=== PATIENT | female | born 1935 ===

== ENCOUNTER 2025-01-01 15:53 | Inpatient (IN) | payer OTHER, SELFPAY ==
[2024-12-28 21:17] VITALS: BP 208/101
[2024-12-28 23:52] VITALS: BP 221/75
--- NOTE | 2024-12-28 23:57 | ED.GENMED ---
History of Present Illness
General
Chief Complaint: Change in Mental Status
Source: patient
Exam Limitations: none
Time Seen by Provider: 12/28/24 23:37
Nursing documentation reviewed up to this point in time: agreed with
History of Present Illness
History of Present Illness:
Patient is a 89-year-old female past with history of dementia hypertension, niddm , renal cancer status post nephrectomy years ago cholecystectomy presents to the ER for evaluation. Daughter reports patient has had worsening confusion over the past
month. She is followed by a neurologist and is on Namenda for dementia and Seroquel as well. Daughter reports they recently moved her out of her apartment in [place] to an apartment locally in [place] however patient is refusing to move into
her apartment. Daughter reports she is think she wants to go home to [facility] where she was born to see her family. Daughter reports there is no more family in [facility] and they are having difficulty managing patient. They will have 24-hour care
for her eventually once she is in her apartment.
pt is awake alert ,aware she is in the hospital cooperative here.
Still she has do not really question is she is here
Phy Exam
General Physical Exam
General Presentation: no apparent distress
General age: appears stated age
General Skin: warm and dry
General Habitus: normal
General Mental: alert
General Hydration: appears well hydrated
Cardiovascular Exam
Cardiovascular Exam: regular rate/rhythm, no murmur and normal peripheral pulses
Pulmonary Exam
Pulmonary Exam: lungs clear and no respiratory distress
Neurological Exam
Neurological Exam: alert and oriented x3
Musculoskeletal Exam
Musculoskeletal Exam: full ROM
Skin Exam
Skin Exam: normal color and warm/dry
Psychiatric Exam
Psychiatric Exam: normal mood/affect
Course
Orders/Labs/Results
Orders:
Orders
12/28/24 23:55
IV Insert/Care/Rem.- Treatment PRN
Complete Blood Count/With Diff Urgent
Comprehensive Metabolic Panel Urgent
Urinalysis Reflex To Culture Urgent
Date Specimen was Collected: 12/29/24
Time Specimen was Collected: 01:04
12/28/24 23:56
Electrocardiogram (*1) Stat
Reason for Study: Abdominal Pain
EKG- Treatment ONCE
12/29/24
CT Head W/o Iv Contrast Urgent
Reason For Exam: change in ms
12/29/24 01:05
Urine Microscopic Reflex Cult Urgent
12/29/24 01:40
0.9% Sodium Chloride 500 ml [Nss] 500 ml IV BOLUS
Abnormal Lab Results
12/29/24 12/29/24
00:11 01:05
Hgb 11.5 L g/dL
(12.0-16.0)
Hct 35.5 L %
(37.0-47.0)
MCH 26.7 L pg
(27.0-31.0)
MCHC 32.4 L g/dL
(33.0-37.0)
Abs Immat Gran (auto) 0.1 H 10^3/uL
(0-0.05)
Absolute Monos (auto) 0.8 H 10^3/uL
(0.1-0.6)
Immature Gran % 1.7 H %
(0-0.5)
Monocytes % 11.7 H %
(1.7-9.3)
Chloride 108 H mmol/L
(98-107)
Carbon Dioxide 20 L mmol/L
(22-30)
Glucose 259 H mg/dl
(70-99)
Urine Bacteria (Reflex) Few A
(Negative)
Urine Glucose 4+ A
(Negative)
Urine Albumin (Reflex) 2+ A
(Neg - Trace)
12/29/24 00:11
12/29/24 00:11
Vital Signs
Initial and Last Documented VS:
Initial Vital Signs
Temp Pulse Resp BP Pulse Ox
98.0 F 95 16 208/101 99
12/28/24 21:17 12/28/24 21:17 12/28/24 21:17 12/28/24 21:17 12/28/24 21:17
Last Documented Vital Signs
Temp Pulse Resp BP Pulse Ox
98.0 F 95 16 208/101 99
12/28/24 21:17 12/28/24 21:17 12/28/24 21:17 12/28/24 21:17 12/29/24 00:00
MDM/Problems Addressed
Differential Diagnosis Includes:
Not limited to UTI electrolyte abnormality worsening dementia
MDM/Problems Addressed:
As documented patient is an 89-year-old female with past manage of hypertension dementia fso-skjnglg-xihovpqgb diabetes history of renal cancer brought by daughter. Daughter reports patient over the past 1 month has had change in mental status more
confused noncompliant taking her medicines argumentative. She has been eval by neurology in the past and is on Namenda and Seroquel however daughter reports patient's confusion has worsened. They have been having difficulty caring for her at home
and have a new apartment for her in place with plan of 24-hour aides in place as well however patient is noncompliant will not go to the apartment. They feel they cannot care for patient home at this time. Patient presents awake alert she wants to
go live in [facility] where she was born as per daughter. Daughter reports there is no family there and this is not realistic.
Patient is afebrile with a normal white count stable hemoglobin normal renal function elevated blood sugar 259. Fluids ordered urinalysis negative no acute findings on CAT scan.
*Radiology
Radiology exam reviewed: radiology read reviewed
*Pulse Oximetry
SaO2: 99
Oxygen Mode of Delivery: Room air
Patient hypoxic: no
*EKG
Interpreted by ED Provider?: Yes
Heart Rate: 82
Rate: normal
Rhythm: sinus
Ischemia: no ischemia
*Critical Care Note
Total Time (30-74mins, 75-104mins- exclusive of procedures): Not Applicable
ED Attending Note
-
Portions of this chart may have been created with voice recognition software.� Occasional wrong word or��sound alike� substitutions may have occurred due to the inherent limitations of voice recognition software.
Discharge Plan
Departure
Prescriptions:
No Action
Hydralazide
50 mg PO TID
Januvia
50 ml SC DAILY
Namenda
10 mg PO BID
losartan
100 mg PO DAILY
metoprolol tartrate
100 mg PO DAILY
pravastatin
20 mg PO DAILY
Referrals:
UNKNOWN - PT DOES,NOT KNOW [Family Provider]
Interventions
Interventions:
*Risk Screen - Suicide Last Done: 12/28/24 21:17
*General Assessment Last Done: 12/28/24 21:17
*Neglect/Abuse Screening Last Done: 12/28/24 21:17
*ED- Fall Risk Assessment Last Done: 12/28/24 21:17
*ED COVID-19 Vaccine History Last Done: 12/28/24 21:17
ED- Neurological Assessment Last Done: 12/29/24 00:14
Discharge Date and Time
Print Language: SYRIAC
[2024-12-29] VITALS (15 sets, daily range): BP systolic 132–236; BP diastolic 43–82; PULSE 87; O2SAT 95
[2024-12-29 00:46] LABS: ALT (SGPT) 18 U/L (0-35); AST (SGOT) 18 U/L (14-36); Albumin 4.0 g/dl (3.5-5.0); Alkaline Phosphatase 87 U/L (38-126); Blood Urea Nitrogen 15 mg/dl (7-17); Calcium 10.1 mg/dl (8.4-10.2); Carbon Dioxide 20 mmol/L (22-30); Chloride 108 mmol/L (98-107); Glucose 259 mg/dl (70-99); Potassium 4.1 mmol/L (3.5-5.1); Sodium 137 mmol/L (135-145); Total Protein 7.2 g/dl (6.3-8.2); eGFR > 60.00
[2024-12-29 00:47] LABS: Hematocrit 35.5 % (37.0-47.0); Hemoglobin 11.5 g/dL (12.0-16.0); Mean Corp Hgb Conc. 32.4 g/dL (33.0-37.0); Mean Corpuscular Volume 82.4 fL (81.0-99.0); Nucleated Red Blood Cells % 0 %; Platelet Count 213 10^3/uL (130-400); Red Cell Dist. Width 14.3 % (11.5-14.5)
[2024-12-29 01:16] LABS: Urine Character Clear (Clear)
[2024-12-29 01:38] LABS: Urine Red Blood Cell 0-2 /HPF (0-2); Urine Squamous Cell 0-2 /LPF (Few); Urine Urothelial Cell 0-2 /LPF (FEW)
[2024-12-29 01:39] LABS: Urine White Cell 0-2 /HPF (0-5)
[2024-12-29] MEDS: NSS 500 IV (03:17)
--- NOTE | 2024-12-29 03:44 | HPS.HSE ---
Family Physician
-
Family Physician: NOT KNOW UNKNOWN - PT DOES
Chief Complaint
-
Behavioral changes
History of Present Illness
This is a 89-year-old female with past medical history significant for hypertension, bux-yebdnmj-jggnyxssf diabetes, hyperlipidemia, dementia who presents to the emergency department with worsening behavioral changes over the last few weeks
according to daughter.
Patient has been on treatment for dementia for over 1 year now. However recently she has been having hallucinatory behavior and delusions. She is stating that she wants to return to her family home to be with her parents and siblings.
She is not more forgetful but she has been having trouble sleeping and has been combative when requested to take her medications. She says she takes them regularly but family believes she often misses doses.
She self denies any symptoms including headache, blurry vision double vision weakness numbness difficulty speaking memory loss
She denies dysuria frequency or urgency. She denies any flank pain. She denies any nausea or vomiting or diarrhea.
She was recently started on Seroquel by a neurologist. She has not had any improvement.
Family recently tried to move from a old apartment to a new apartment that does not require her to go up to 5 stairs however patient has been very very combative because of this change. She is attempting to return to her previous apartment or sleep
outside. She was brought to the emergency department because of this issues.
In the emergency department she was hypertensive to 200/100 with a pulse rate in the 90s. She is satting 100% on room air. She was afebrile. CT of her head was negative. ECG shows a normal sinus rhythm with right bundle branch otherwise
unremarkable. UA was negative. CBC was normal. Electrolytes BUN/creatinine were normal. Glucose was moderately elevated at 250.
Medical History
Past Medical History
Past Medical History: Reports Dementia, HTN, Hypercholesterolemia and NIDDM
Past Surgical History: Reports Other
Social History
Tobacco: Non-smoker
Alcohol: None
Drug: None
Personal:
Living: Alone
Employment: Retired
Family History
Family History: Not pertinent
Allergies / Home Medications
Allergies reflects when Allergies were last updated in [employer].
Home Medications with original date entered in [employer]
Allergy/Medication List:
Allergies
Allergy/AdvReac Type Severity Reaction Status Date / Time
No Known Allergies Allergy Verified 12/28/24 21:22
Home Medications
Hydralazide 50 mg PO TID 12/29/24
Januvia 50 ml SC DAILY 12/29/24
Namenda 10 mg PO BID 12/29/24
losartan 100 mg PO DAILY 12/29/24
metoprolol tartrate 100 mg PO DAILY 12/29/24
pravastatin 20 mg PO DAILY 12/29/24
Review of Systems
-
Unable to obtain full review of systems at this time due to: Dementia
History Source: Patient and Family
Constitutional: Reports No Symptoms
EENT: Reports No Symptoms
Respiratory: Reports No Symptoms
Cardiac: Reports No Symptoms
Abdomen/GI: Reports No Symptoms
: Reports No Symptoms
Musculoskeletal: Reports No Symptoms
Skin: Reports No Symptoms
Neurological: Reports No Symptoms
Endocrine: Reports No Symptoms
Hematologic/Lymphatic: Reports No Symptoms
Psych: Reports Dementia and Audio or Visual Hallucinations
Physical Exam
Vital Signs
Vital Signs
Temp Pulse Resp BP Pulse Ox
98.0 F 95 16 208/101 99
12/28/24 21:17 12/28/24 21:17 12/28/24 21:17 12/28/24 21:17 12/29/24 00:00
Physical Exam
General: Well Developed, Well Nourished and No Apparent Distress
HEENT: NormoCephalic, Moist mucous membranes and Atraumatic
Respiratory: Clear
Cardiac: S1/S2 and Regular Rhythm; No Murmur or Rub
GI: Soft, Non Tender, Non Distended and Normal Bowel Sounds; No Organomegaly
Rectal: Deferred by Provider
Musculoskeletal: No Clubbing, No Cyanosis and No Edema
Skin: No Rash
Neuro: AO x 3 (She is oriented to person, she knows she is in the hospital, she knows the year and the month) and Nonfocal/grossly intact
Laboratory Results
-
12/29/24 00:11
12/29/24 00:11
Laboratory Results
Total Bilirubin 0.7 mg/dl (0.2-1.3) 12/29/24 00:11
AST 18 U/L (14-36) 12/29/24 00:11
ALT 18 U/L (0-35) 12/29/24 00:11
Alkaline Phosphatase 87 U/L (38-126) 12/29/24 00:11
Data Reviewed
-
CT Scan: Report Reviewed by me
Medical Tests (Nuc Med, Echo, EKG etc): Image Personally Visualized and interpreted
Lab Data: Labs Reviewed by me
Old Records: Reviewed
Impression/Plan
-
IMPRESSION:
89-year-old female with history of dementia currently on Namenda who has been having progressive behavioral changes with hallucinations of family members who have been , increasing combativeness with primary helpers and family. Noncompliant
with medications. She arrived in the ED alert and oriented and in no acute distress. Vital signs shows hypertension. Her labs are all normal. Patient was combative towards her family members when they try to correct her delusions about returning
to family members. She had recently started Seroquel but has shown no improvement in her symptoms.
PLAN:
Behavioral changes -suspect psych changes likely secondary to worsening dementia with subsequent behavioral modifications.
- Admit to MedSurg
- Check TSH, B12, folate
- Continue on Namenda
- Continue Seroquel
- Psychiatric consult for med management, suspect patient may benefit from low-dose antipsychotic such as Zyprexa or even Risperdal
Hypertension -uncontrolled likely due to noncompliance
- Continue hydralazine, metoprolol and losartan
- As needed IV hydralazine for now
Diabetes
- Continue Januvia
- Sliding scale insulin
DVT prophylaxis�Lovenox subcu
CODE STATUS�full code
[2024-12-29] MEDS: APRESOLINE 10 MG IV ×2 (04:20→09:58)
--- NOTE | 2024-12-29 05:30 | PTCARENOTE ---
Pt. came up from E.D., awake, alert, confused, daughter answered admission questions, NSR on monitor, bed alarm intact and call dutta at bedside.
[2024-12-29] MEDS: NAMENDA 10 MG PO ×2 (07:35→20:04)
[2024-12-29] MEDS: PRAVACHOL 20 MG PO (07:35)
[2024-12-29] MEDS: APRESOLINE 50 MG PO ×3 (07:37→21:32)
[2024-12-29] MEDS: COZAAR 100 MG PO (07:39)
[2024-12-29] MEDS: LOPRESSOR 100 MG PO (07:39)
[2024-12-29] MEDS: JANUVIA 50 MG PO (07:44)
[2024-12-29 07:50] LABS: Glucose - Point of Care 185 mg/dl (70-99)
[2024-12-29] MEDS: NOVOLOG FLEXPEN-LOW RESISTANCE 1 UNITS SC (09:11)
--- NOTE | 2024-12-29 09:17 | CS.PSYCHR ---
Consult Summary - Psychiatry
-
Patient seen by me on 12/29/2024 from 9:25am-9:50am
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 Chart reviewed. 89 yo female with past medical history as noted below admitted on 12/29/2024 for worsening behavioral changes and delusions. Daughter states patient
was doing well until age 87 when she started noticing a decline. She states that recently, patient's thought process has not been reality based. She wants to pack her belongings and uber back to [facility] where she thinks her family is awaiting her.
She adds increased difficulty sleeping and combativeness during medication administration. Patient was diagnosed with dementia about a year ago and is prescribed Namenda 10mg BID. Her neurologist also started her on Seroquel initially 12.5mg BID and
now 25mg BID over the past month. This has been sedating (particularly concerning during the day due to increased fall risk) but has not helped her psychotic features. We discussed option for trial of low dose Risperdal to see if she
tolerates/responds to it better. We reviewed the potential risks and benefits of this medication. Daughter is agreeable to this plan. Patient presents calm and socially appropriate at this time, thanking me for taking care of her.
UA negative
CT head- -chronic small vessel ischemic disease; diffuse parenchymal volume loss; atherosclerosis of intracranial vasculature; no acute findings
TSH, B12/folate pending
Social- Born in [facility]. . family recently trying to move her to [facility] with better layout and 24 hour care but patient refusing
PMH- HTN, DM, HLD, dementia
Past psych- prescribed seroquel by neurologist as noted above
Family history- non-contributory
A/P- 89 yo female with worsening dementia with behavioral disturbances/psychosis. Will do a now trial of Risperdal 0.25mg and see how patient tolerates it. if response is good, will consider standing dose in place of Seroquel. will check EKG for qtc
monitoring. case discussed with nursing.
[2024-12-29 10:50] LABS: Folate 8.2 ng/ml (2.76-20); Vitamin B12 937 pg/ml (239-931)
[2024-12-29] MEDS: RISPERDAL 0.25 MG PO (11:17)
--- NOTE | 2024-12-29 11:28 | W.PN.HOSP.TC ---
Addendum entered and electronically signed by Osmin Roach MD 12/29/24 12:27:
hx of dementia, lives alone
cc: behavioural changes and hallucinating
bg 250, ct without acute findings, bp high
uncontrolled htn
-s/p iv hydralazine in the ED
-resume hydral, arb, bb
dementia with behavioural changes
--discussed with daughter progression of dementia
-Continue namenda
-Psych consult
-Trial Risperdal
-thiamine
hld
-contineu statin
dm c/n uncontrolled hyperglycemia
-ssi
-bg goal 140-180
-ccdiet
-continue januvia
pt/ot
may need snf placement
Original Note:
Today's Communication/Plan
-
Psych consult
trial of Risperdal today
PT/OT
Case management consult
Carb controlled diet
Assessment / Plan
Assessment / Plan
Impression
89-year-old female with past medical history of essential hypertension, nhb-khdpdwk-cccwyupcn diabetes mellitus and recently diagnosed dementia a year ago, currently on Namenda 10 mg twice daily admitted with worsening behavioral changes and
delusions.
Started on Seroquel by her neurologist
Uncontrolled blood pressure
Uncontrolled blood sugar
Assessment/plan
#Worsening dementia with behavioral disturbances
Newly diagnosed dementia a year ago, patient is currently on Namenda 10 mg twice daily
For her agitation, her neurologist advised Seroquel, sedating effect, puts patient at risk for falls
Psych consult appreciated-plan to do a trial of Risperdal 0.25 mg today
Monitor QTc
Monitor BMP
Frequent reorientation
#Ambulatory issues
Family concerned about balance issues
Discontinue Seroquel for now, trial of Risperdal
PT/OT
#Sha-knmomkt-dnkhygofy diabetes mellitus
On admission blood sugar 259
Family reported patient has been eating a lot of chocolates and candies
Start carb controlled diet
Sliding scale insulin
Continue Januvia
Check HbA1c
Continue to monitor blood sugar levels
#Uncontrolled hypertension
Continue home medications
Add hydralazine as needed
If needed can add on oral medications
Continue to monitor blood pressure
#Hyperlipidemia-continue statins
DVT prophylaxis-enoxaparin
CODE STATUS-full code
Anticipated Discharge: 24 - 48 hours
Subjective/Interval History
-
Date of Service: December 29, 2024
Patient seen and examined at bedside
Alert and oriented
Admitted for new onset behavioral changes, insisting on going back to her family members in [place] who are now as per the daughter
Patient states that she feels angrier and upset when someone tries to oppose her statements regarding her family
Otherwise she feels fine, remains pleasant through all the visit
Objective Data
-
Labs:
Laboratory Results
12/29/24
00:11
WBC 6.9
Hgb 11.5 L
Hct 35.5 L
Plt Count 213
Sodium 137
Potassium 4.1
Chloride 108 H
Carbon Dioxide 20 L
BUN 15
Creatinine 0.7
Glucose 259 H
Calcium 10.1
Total Bilirubin 0.7
AST 18
ALT 18
Alkaline Phosphatase 87
Vital Signs:
Vital Signs
Temp Pulse Resp BP Pulse Ox
98 F 80 18 166/60 94
12/29/24 08:28 12/29/24 09:57 12/29/24 08:28 12/29/24 09:57 12/29/24 08:28
I&O
12/28/24 12/29/24 12/30/24
06:59 06:59 06:59
Output Total 400 / 400
Balance -400 / -400
Review of Systems
-
All other systems: Reviewed and negative
Physical Exam
-
General: Well Developed, Well Nourished, No Apparent Distress and Comfortable
Respiratory: Clear to Auscultation; Negative Wheezes, Rales or Rhonchi
Cardiac: Regular Rhythm and S1/S2
GI: Soft, Nontender, Nondistended and Normal Bowel Sounds
Musculoskeletal: No Clubbing, No Cyanosis and No Edema
Neuro: Awake, AO x 3 and Nonfocal/Grossly Intact
Psych: Calm
[2024-12-29 11:43] LABS: Glucose - Point of Care 285 mg/dl (70-99)
[2024-12-29] MEDS: NOVOLOG FLEXPEN-LOW RESISTANCE 3 UNITS SC ×2 (13:47→17:06)
[2024-12-29 16:29] LABS: Glucose - Point of Care 255 mg/dl (70-99)
[2024-12-29] MEDS: LOVENOX 40 MG SC (17:08)
[2024-12-29 21:30] LABS: Glucose - Point of Care 197 mg/dl (70-99)
[2024-12-29] MEDS: RISPERDAL 0.5 MG PO (21:32)
[2024-12-30] VITALS (9 sets, daily range): BP systolic 136–183; BP diastolic 54–83; PULSE 74–79; O2SAT 96–99
[2024-12-30 08:49] LABS: Glucose - Point of Care 184 mg/dl (70-99)
[2024-12-30] MEDS: LOPRESSOR 100 MG PO (09:21)
[2024-12-30] MEDS: NAMENDA 10 MG PO ×2 (09:22→20:30)
[2024-12-30] MEDS: NOVOLOG FLEXPEN-LOW RESISTANCE 1 UNITS SC ×2 (09:22→18:02)
[2024-12-30] MEDS: PRAVACHOL 20 MG PO (09:22)
[2024-12-30] MEDS: JANUVIA 50 MG PO (09:22)
[2024-12-30] MEDS: APRESOLINE 50 MG PO ×3 (09:22→21:42)
[2024-12-30] MEDS: COZAAR 100 MG PO (09:22)
[2024-12-30 10:01] LABS: Blood Urea Nitrogen 28 mg/dl (7-17); Calcium 8.9 mg/dl (8.4-10.2); Carbon Dioxide 21 mmol/L (22-30); Chloride 110 mmol/L (98-107); Glucose 186 mg/dl (70-99); Potassium 4.2 mmol/L (3.5-5.1); Sodium 138 mmol/L (135-145); eGFR 22.11
--- NOTE | 2024-12-30 10:15 | W.PN.HOSP.TC ---
Today's Communication/Plan
-
Hold losartan due to RAVIN
start IV fluid
per psych consult patient is still having delusional symptoms and Risperidone will be increased from 0.5 daily to 0.5 mg BID
decreased Januvia from 50 mg daily to 25mg daily
case technician working on SNF
Assessment / Plan
Assessment / Plan
Impression
89-year-old female with past medical history of essential hypertension, cfs-dbdtvtw-sadjxvtjc diabetes mellitus and recently diagnosed dementia a year ago, currently on Namenda 10 mg twice daily admitted with worsening behavioral changes and
delusions.
Started on Seroquel by her neurologist
Uncontrolled blood pressure
Uncontrolled blood sugar
Assessment/plan
#Worsening dementia with behavioral disturbances
Newly diagnosed dementia a year ago, patient is currently on Namenda 10 mg twice daily
For her agitation, her neurologist advised Seroquel, sedating effect, puts patient at risk for falls
Psych consult appreciated-plan to do a trial of Risperdal 0.25 mg today
Monitor QTc
Monitor BMP
Frequent reorientation
per psych consult patient is still having delusional symptoms and Risperidone will be increased from 0.5 daily to 0.5 mg BID
#Ambulatory issues
Family concerned about balance issues
Discontinue Seroquel for now, trial of Risperdal
PT/OT
#Pji-zqpqtbe-txybtptiy diabetes mellitus
On admission blood sugar 259,
Family reported patient has been eating a lot of chocolates and candies
Start carb controlled diet
Sliding scale insulin
Continue Januvia decreased the dose today to 25 mg daily
Check HbA1c
Continue to monitor blood sugar levels
#RAVIN
Today cr 2.1 GFR 22.1 likely due to dehydration
IV Fluid started
hold losartan
if Kidney function still abnormal consult nephro
#Uncontrolled hypertension
Continue home medications, except losartan due to RAVIN
Add hydralazine as needed
If needed can add on oral medications
Continue to monitor blood pressure
#Hyperlipidemia-continue statins
DVT prophylaxis-enoxaparin
CODE STATUS-full code
Anticipated Discharge: 24 - 48 hours
Subjective/Interval History
-
Date of Service: December 30, 2024
patient looks calm and and answered the questions and denied n/v/f. no abd pain, sob of dizziness. She doesn't want to go back to her old apartment and wants to go to her home in her original [place] [facility] where her parents and siblings live
there. He daughter who where at bedside stated that she is concerned about going back to the the apartment and she request checking with case technician for nursing skilled facility after discharge.
Objective Data
-
Labs:
Laboratory Results
12/30/24
07:26
Sodium 138
Potassium 4.2
Chloride 110 H
Carbon Dioxide 21 L
BUN 28 H
Creatinine 2.1 H
Glucose 186 H
Calcium 8.9
Vital Signs:
Vital Signs
Temp Pulse Resp BP Pulse Ox
99.5 F 84 18 168/83 97
12/30/24 08:00 12/30/24 09:22 12/30/24 08:00 12/30/24 09:22 12/30/24 08:00
I&O
12/29/24 12/30/24 12/31/24
06:59 06:59 06:59
Output Total 400 / 400
Balance -400 / -400
Review of Systems
-
Unable to obtain full review of systems at this time due to: Dementia
History Source: Family
Respiratory: Reports No Symptoms
Cardiac: Reports No Symptoms
Abdomen/GI: Reports No Symptoms
Genitourinary: Reports No Symptoms
Musculoskeletal: Reports No Symptoms
Neuro: Reports No Symptoms
Physical Exam
-
General: Well Developed, Well Nourished, No Apparent Distress and Comfortable
Respiratory: Clear to Auscultation
Cardiac: Regular Rhythm and S1/S2
GI: Soft and Nontender
Musculoskeletal: No Clubbing, No Cyanosis and No Edema
Neuro: Awake and Alert
Psych: Calm
--- NOTE | 2024-12-30 10:20 | CM ---
Addendum entered by Harmony Cloud 12/30/24 17:06:
[facility] have accepted patient and insurance contacted [phone] pending Auth is [id number], all clinicals faxed to
Addendum entered by Harmony Cloud 12/30/24 14:25:
Referrals sent to [facility], [facility], [facility] and [facility], patient has been denied at [facility] and [facility], no beds today at [facility].
Addendum entered by Harmony Cloud 12/30/24 10:50:
[facility] letter provided to patient at 9am, 12/30/24
Original Note:
financial institution branch manager reviewed patient's chart and met with patient and her daughter Sheridan at bedside, patient states she lives in a 1st floor apartment, is independent with adl's and ambulation, per daughter they are in the process of adding bars and other
safety precautions to patient's apartment. Patient may benefit from a walker. financial institution branch manager spoke with patient about discharge planning and physical therapy are recommending skilled placement options reviewed including [facility] and [facility] referrals sent.
Plan; Skilled placement
PCP:
Pharmacy: [facility] in [place].
[2024-12-30 12:26] LABS: Hematocrit 33.4 % (37.0-47.0); Hemoglobin 10.9 g/dL (12.0-16.0); Mean Corp Hgb Conc. 32.6 g/dL (33.0-37.0); Mean Corpuscular Volume 81.9 fL (81.0-99.0); Platelet Count 184 10^3/uL (130-400); Red Cell Dist. Width 14.3 % (11.5-14.5)
--- NOTE | 2024-12-30 12:27 | W.PN.UPDATE ---
Update Note
Progress Note Update
pt seen for arabella, daughter interviewed (at bedside.) Chart reviewed, spoke with case liner.
89 yo woman with well documented dementia, though generally pleasant and cooperative until recently, when she became concerned about needing to return to [facility]. Daughter found she had packed up most of her belongings in boxes in her apt.
with dangerous restriction on movement. daughter arranged for new apt in supported living, brought pt to her home while everything moved to new apt; pt does not want to go. Insists God will provide, says she can stay with relatives in [place],
which daughter states are all (pt mentions her father is there.)
Aside from these delusions pt is pleasant, cooperative, oriented x 3. Insists she has no mental problem, says God will take care of her. Clutches pendant around her neck, says that it is an matti, that she found it and it will protect her. Pendant
has a picture of a totem pole, with the word '[place]' written underneath it.
Had been placed on low dose of seroquel without much effect. Now on risperdal 0.5 mg daily, doing a bit better, will see if can get more control of delusios with 0.5 mg bid.
Pt has no insight.
[2024-12-30 12:28] LABS: Glucose - Point of Care 264 mg/dl (70-99)
[2024-12-30 12:42] LABS: APTT 23.1 Sec (23.4-35.0)
[2024-12-30] MEDS: NOVOLOG FLEXPEN-LOW RESISTANCE 3 UNITS SC (12:53)
[2024-12-30] MEDS: NSS 1000 IV ×2 (13:17→21:43)
[2024-12-30 17:17] LABS: Glucose - Point of Care 160 mg/dl (70-99)
[2024-12-30] MEDS: HEPARIN 5000 UNITS SC (20:30)
[2024-12-30] MEDS: RISPERDAL 0.5 MG PO (21:42)
[2024-12-30 21:45] LABS: Glucose - Point of Care 204 mg/dl (70-99)
[2024-12-31] VITALS (7 sets, daily range): BP systolic 144–184; BP diastolic 57–80
[2024-12-31 07:32] LABS: Glucose - Point of Care 150 mg/dl (70-99)
[2024-12-31 08:05] LABS: Hematocrit 29.4 % (37.0-47.0); Hemoglobin 9.7 g/dL (12.0-16.0); Mean Corp Hgb Conc. 33.0 g/dL (33.0-37.0); Mean Corpuscular Volume 83.3 fL (81.0-99.0); Platelet Count 191 10^3/uL (130-400); Red Cell Dist. Width 14.4 % (11.5-14.5)
[2024-12-31 08:26] LABS: ALT (SGPT) 11 U/L (0-35); AST (SGOT) 15 U/L (14-36); Albumin 3.1 g/dl (3.5-5.0); Alkaline Phosphatase 60 U/L (38-126); Blood Urea Nitrogen 29 mg/dl (7-17); Calcium 8.6 mg/dl (8.4-10.2); Carbon Dioxide 20 mmol/L (22-30); Chloride 115 mmol/L (98-107); Estimated Creatinine Clearance 18 ml/min; Glucose 151 mg/dl (70-99); Potassium 4.0 mmol/L (3.5-5.1); Sodium 140 mmol/L (135-145); Total Protein 5.8 g/dl (6.3-8.2); eGFR 24.93
[2024-12-31] MEDS: APRESOLINE 50 MG PO ×3 (09:20→21:55)
[2024-12-31] MEDS: NAMENDA 10 MG PO ×2 (09:21→20:42)
[2024-12-31] MEDS: JANUVIA 25 MG PO (09:21)
[2024-12-31] MEDS: LOPRESSOR 100 MG PO (09:22)
[2024-12-31] MEDS: PRAVACHOL 20 MG PO (09:22)
[2024-12-31] MEDS: NOVOLOG FLEXPEN-LOW RESISTANCE 1 UNITS SC (09:23)
[2024-12-31] MEDS: HEPARIN 5000 UNITS SC ×2 (09:23→20:42)
[2024-12-31] MEDS: NSS 1000 IV ×2 (09:24→20:42)
--- NOTE | 2024-12-31 10:05 | CM ---
Auth submitted for [facility] to insurance, pending Auth [id number], waiting on final determination, per admissions at [facility] they can accept patient.
Plan; Waiting on Auth from insurance.
[2024-12-31 12:38] LABS: Glucose - Point of Care 172 mg/dl (70-99)
[2024-12-31] MEDS: NSS IV ×2 (12:50→23:51)
--- NOTE | 2024-12-31 12:50 | W.PN.UPDATE ---
Update Note
Progress Note Update
I have independently evaluated the patient at the bedside. I reviewed the case with the resident and agree with documentation unless otherwise specified.
AFVSS. Renal function worsened today, creatinine up to 2.1 from 0.7. I's and O's not tracked. Patient denies any complaints though ROS limited by dementia. Discussed with her daughter at the bedside
Alert and oriented, NAD. Cardiopulmonary exam benign, abdomen benign. Skin warm and dry, palpable pulses, no edema. No focal deficits, no tremor. PERRL
#Dementia with behavioral change. Psychiatry following and has transitioned patient from Seroquel to Risperdal 0.5 mg nightly. Remains on Namenda. Psychiatry appreciated. Continue with delirium precaution.� Monitor QTc
#Prerenal RAVIN, solitary kidney. Creatinine trend 0.7�2.1�1.9. �Unclear etiology though suspect prerenal with dehydration as renal function improving with IVF. �Renal ultrasound without signs of obstruction though did demonstrate solitary kidney.�
Hold home losartan and continue IV fluids. Trend BMP and UOP, avoid nephrotoxins.
Diet -- Diabetic, 1600 Calories
DVT prophylaxis -- SQ heparin
CODE STATUS -- Full
Disposition -- SNF in >48 hours
[2024-12-31] MEDS: NOVOLOG FLEXPEN-LOW RESISTANCE SC (13:31)
--- NOTE | 2024-12-31 13:47 | W.PN.HOSP.TC ---
Today's Communication/Plan
-
PT/OT evaluation today
'OK to shower' ordered today
Assessment / Plan
Assessment / Plan
89-year-old female with past medical history of essential hypertension, ieu-ipezwzf-ujifhbbho diabetes mellitus and recently diagnosed dementia a year ago, currently on Namenda 10 mg twice daily admitted with worsening behavioral changes and
delusions.
Started on Seroquel by her neurologist
Uncontrolled blood pressure
Uncontrolled blood sugar
Assessment/plan
#Worsening dementia with behavioral disturbances
Newly diagnosed dementia a year ago, patient is currently on Namenda 10 mg twice daily
For her agitation, her neurologist advised Seroquel, sedating effect, puts patient at risk for falls
Psych consult appreciated-plan to do a trial of Risperdal 0.25 mg increased to 0.5mg daily
Monitor QTc , normal today
Monitor BMP
Frequent reorientation
per psych consult patient is still having delusional symptoms and Risperidone will be increased from 0.5 daily to 0.5 mg BID
#Ambulatory issues
Family concerned about balance issues
Discontinue Seroquel for now, trial of Risperdal
PT/OT
#Mlg-gjpttxk-yvrvxwtaw diabetes mellitus
Family reported patient has been eating a lot of chocolates and candies
Start carb controlled diet
Sliding scale insulin
Continue Januvia decreased the dose today to 25 mg daily
Check HbA1c
Continue to monitor blood sugar levels
#RAVIN
Today cr 0.7--2.1-- 1.9 GFR 22.1 -- 24.93 likely due to dehydration
continue IV Fluid
continue hold losartan
Renal ultrasound without signs of obstruction, showed solitary kidney
trend BMP, urine outputs check
avoid nephrotoxins
#Uncontrolled hypertension
Continue home medications, except losartan due to RAVIN
Add hydralazine as needed
If needed can add on oral medications
Continue to monitor blood pressure
#Hyperlipidemia-continue statins
DVT prophylaxis-enoxaparin
CODE STATUS-full code
Anticipated Discharge: 24 - 48 hours
Subjective/Interval History
-
Date of Service: December 31, 2024
Patient is oriented X3 , still have behavioral changes and insisted to go to her home in [place] and see her parents who had been .
Objective Data
-
Labs:
Laboratory Results
12/31/24
07:38
WBC 5.5
Hgb 9.7 L
Hct 29.4 L
Plt Count 191
Sodium 140
Potassium 4.0
Chloride 115 H
Carbon Dioxide 20 L
BUN 29 H
Creatinine 1.9 H
Glucose 151 H
Calcium 8.6
Total Bilirubin 0.7
AST 15
ALT 11
Alkaline Phosphatase 60
Vital Signs:
Vital Signs
Temp Pulse Resp BP Pulse Ox
98.6 F 71 16 144/59 94
12/31/24 10:35 12/31/24 10:35 12/31/24 10:35 12/31/24 10:35 12/31/24 10:35
I&O
12/30/24 12/31/24 01/01/25
06:59 06:59 06:59
Intake Total 240 / 240
Balance 240 / 240
Review of Systems
-
Unable to obtain full review of systems at this time due to: Dementia and Other (ROS limited by dementia, however patient looks calm and stated no pain or shortness of breath. )
Physical Exam
-
General: Well Developed, Well Nourished, No Apparent Distress and Comfortable
Respiratory: Clear to Auscultation
Cardiac: Regular Rhythm and S1/S2
GI: Soft, Nontender and Nondistended
Musculoskeletal: No Clubbing, No Cyanosis and No Edema
Skin: Warm and Dry
Neuro: Awake, Alert and Oriented
Psych: Calm
--- NOTE | 2024-12-31 15:37 | W.PN.UPDATE ---
Update Note
Progress Note Update
pt seen for assessment of progress. 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
if I were the dumbest person in the world) that there is a road, don't worry. Would continue with risperdal, have increased to bid
[2024-12-31] MEDS: NOVOLOG FLEXPEN-LOW RESISTANCE 2 UNITS SC (17:03)
[2024-12-31 17:04] LABS: Glucose - Point of Care 209 mg/dl (70-99)
[2024-12-31 20:42] LABS: Glucose - Point of Care 160 mg/dl (70-99)
[2024-12-31] MEDS: RISPERDAL 0.5 MG PO (20:42)
[2025-01-01 03:00] VITALS: BP 168/70
[2025-01-01] MEDS: NSS 1000 IV (04:45)
[2025-01-01 04:51] VITALS: BP 117/75
[2025-01-01 07:26] LABS: Glucose - Point of Care 153 mg/dl (70-99)
[2025-01-01] MEDS: LOPRESSOR 100 MG PO (07:47)
[2025-01-01] MEDS: JANUVIA 25 MG PO (07:49)
[2025-01-01] MEDS: HEPARIN 5000 UNITS SC ×2 (07:50→22:09)
[2025-01-01] MEDS: APRESOLINE 50 MG PO ×3 (07:50→22:10)
[2025-01-01 07:55] VITALS: BP 191/84
[2025-01-01] MEDS: NOVOLOG FLEXPEN-LOW RESISTANCE 1 UNITS SC ×2 (08:04→12:34)
[2025-01-01] MEDS: NAMENDA 10 MG PO ×2 (08:08→22:11)
[2025-01-01] MEDS: RISPERDAL 0.5 MG PO ×2 (08:08→22:11)
[2025-01-01] MEDS: PRAVACHOL 20 MG PO (08:08)
[2025-01-01 08:18] LABS: Hematocrit 34.1 % (37.0-47.0); Hemoglobin 11.0 g/dL (12.0-16.0); Mean Corp Hgb Conc. 32.3 g/dL (33.0-37.0); Mean Corpuscular Volume 84.4 fL (81.0-99.0); Platelet Count 235 10^3/uL (130-400); Red Cell Dist. Width 14.4 % (11.5-14.5)
[2025-01-01 09:06] LABS: ALT (SGPT) 14 U/L (0-35); AST (SGOT) 19 U/L (14-36); Albumin 3.8 g/dl (3.5-5.0); Alkaline Phosphatase 76 U/L (38-126); Blood Urea Nitrogen 26 mg/dl (7-17); Calcium 8.9 mg/dl (8.4-10.2); Carbon Dioxide 16 mmol/L (22-30); Chloride 115 mmol/L (98-107); Estimated Creatinine Clearance 23 ml/min; Glucose 164 mg/dl (70-99); Potassium 3.9 mmol/L (3.5-5.1); Sodium 143 mmol/L (135-145); Total Protein 6.8 g/dl (6.3-8.2); eGFR 33.10
--- NOTE | 2025-01-01 09:19 | CM ---
Chart reviewed and rehabilitation caseworker spoke with patient's social insurance specialist today [place] [phone] today and faxed updated clinicals, Pending Auth [id number]. Will reach out to admissions at [facility] to check on a bed for
patient.
Plan; skilled placement.
[2025-01-01 10:43] VITALS: BP 151/78; PULSE 75
[2025-01-01 12:14] LABS: Glucose - Point of Care 187 mg/dl (70-99)
--- NOTE | 2025-01-01 12:22 | PTCARENOTE ---
Patient stated they did not have an appetite. Patients daughter brought food from home, patient refused food from home as well.
[2025-01-01 14:55] LABS: Blood Urea Nitrogen 25 mg/dl (7-17); Calcium 8.9 mg/dl (8.4-10.2); Carbon Dioxide 17 mmol/L (22-30); Chloride 114 mmol/L (98-107); Estimated Creatinine Clearance 25 ml/min; Glucose 187 mg/dl (70-99); Potassium 4.2 mmol/L (3.5-5.1); Sodium 141 mmol/L (135-145); eGFR 35.96
--- NOTE | 2025-01-01 15:34 | W.PN.HOSP.TC ---
Today's Communication/Plan
-
BMP repeated this afternoon today and her creatinine still elevated
planned to DC her today as she approved for [facility] with available bed , but will be monitored for tomorrow to check her kidney function
repeat BMP tomorrow if her creatinine back to baseline will DC her tomorrow
Diclofenac Gell 1% cream ordered for her left shoulder pain
psychologist consulted and recommended 0.5 mg PO BID Risperidone at discharged, no change from hospital dose
Assessment / Plan
Assessment / Plan
89-year-old female with past medical history of essential hypertension, bdf-uvqugzq-bcdbakoxe diabetes mellitus and recently diagnosed dementia a year ago, currently on Namenda 10 mg twice daily admitted with worsening behavioral changes and
delusions.
Started on Seroquel by her neurologist
Uncontrolled blood pressure
Uncontrolled blood sugar
Assessment/plan
#Worsening dementia with behavioral disturbances
Newly diagnosed dementia a year ago, patient is currently on Namenda 10 mg twice daily
For her agitation, her neurologist advised Seroquel, sedating effect, puts patient at risk for falls
Psych consult appreciated-plan to do a trial of Risperdal 0.25 mg increased to 0.5mg daily
Monitor QTc , normal today
Monitor BMP
Frequent reorientation
per psych consult patient is still having delusional symptoms and Risperidone will be increased from 0.5 daily to 0.5 mg BID
#Ambulatory issues
Family concerned about balance issues
Discontinue Seroquel for now, trial of Risperdal
PT/OT
#Osx-qvtqzau-sxgrbehip diabetes mellitus
Family reported patient has been eating a lot of chocolates and candies
Start carb controlled diet
Sliding scale insulin
Continue Januvia decreased the dose today to 25 mg daily
Check HbA1c
Continue to monitor blood sugar levels
#RAVIN
Today cr 0.7--2.1-- 1.9-- 1.5--1.4
GFR 22.1 -- 24.93 --33.10--35.96 likely due to dehydration
continue IV Fluid
continue hold losartan
Renal ultrasound without signs of obstruction, showed solitary kidney
trend BMP, urine outputs check
avoid nephrotoxins
#Uncontrolled hypertension
Continue home medications, except losartan due to RAVIN
Add hydralazine as needed
If needed can add on oral medications
Continue to monitor blood pressure
#Hyperlipidemia-continue statins
DVT prophylaxis-enoxaparin
CODE STATUS-full code
Anticipated Discharge: 24 - 48 hours
Subjective/Interval History
-
Date of Service: January 01, 2025
Patient says that she 'feels good' today, he daughter was not at bedside. Has left shoulder pain and stated that she needs a cream to put on her back for pain. denied, nausea , vomiting , fever, chill, chest pain, sob.
Objective Data
-
Labs:
Laboratory Results
01/01/25 01/01/25 01/01/25
07:43 11:45 13:29
WBC 9.2
Hgb 11.0 L
Hct 34.1 L
Plt Count 235 D
Sodium 143 Cancelled 141
Potassium 3.9 Cancelled 4.2
Chloride 115 H Cancelled 114 H
Carbon Dioxide 16 L Cancelled 17 L
BUN 26 H Cancelled 25 H
Creatinine 1.5 H Cancelled 1.4 H
Glucose 164 H Cancelled 187 H
Calcium 8.9 Cancelled 8.9
Total Bilirubin 0.8
AST 19
ALT 14
Alkaline Phosphatase 76
Vital Signs:
Vital Signs
Temp Pulse Resp BP Pulse Ox
99.6 F 99 16 191/84 96
01/01/25 07:55 01/01/25 07:55 01/01/25 07:55 01/01/25 07:55 01/01/25 07:55
I&O
12/31/24 01/01/25 01/02/25
06:59 06:59 06:59
Intake Total 240 / 240 3200 / 3200
Balance 240 / 240 3200 / 3200
Review of Systems
-
Unable to obtain full review of systems at this time due to: Dementia
History Source: Patient
Respiratory: Reports No Symptoms
Cardiac: Reports No Symptoms
Abdomen/GI: Reports No Symptoms
Genitourinary: Reports No Symptoms
Musculoskeletal: Reports Muscle Pain (left shoulder pain )
Neuro: Reports No Symptoms
Physical Exam
-
General: Well Developed, Well Nourished, No Apparent Distress and Comfortable
Respiratory: Clear to Auscultation
Cardiac: Regular Rhythm and S1/S2
GI: Soft, Nontender and Nondistended
Musculoskeletal: No Clubbing, No Cyanosis and No Edema
Skin: Warm and Dry
Neuro: Awake, Alert and Oriented
Psych: Calm
[2025-01-01 15:45] VITALS: BP 170/86
[2025-01-01 17:04] LABS: Glucose - Point of Care 148 mg/dl (70-99)
[2025-01-01] MEDS: LR 1000 IV ×2 (17:12→22:15)
[2025-01-01] MEDS: NOVOLOG FLEXPEN-LOW RESISTANCE SC (17:22)
--- NOTE | 2025-01-01 21:57 | W.PN.UPDATE ---
Update Note
Progress Note Update
pt seen for assessment. remains pleasant as ever, but still insists that when she leaves here she will go to [facility]. smiles at me indulgently as I try to question how she will get there 'God will provide'
Would continue with risperdal 0.5 mg bid
[2025-01-01] MEDS: LR IV (22:02)
[2025-01-01 22:32] LABS: Glucose - Point of Care 204 mg/dl (70-99)
[2025-01-01 23:00] VITALS: BP 182/83
--- NOTE | 2025-01-01 23:21 | PTCARENOTE ---
At 2150, patient stated that she felt short of breath. This RN auscultated her breath sounds; breath sounds were diminished with expiratory wheezing. Patient was sating at 95% on room air, respirations were 18. Nurse practitioner made aware. Order
placed to lower Lactated Ringer rate from 125 ml/hr to 60 ml/hr.
[2025-01-02] MEDS: APRESOLINE 10 MG IV (00:47)
[2025-01-02 04:44] VITALS: BP 166/100
[2025-01-02] MEDS: LR 1000 IV (05:03)
[2025-01-02 07:10] VITALS: BP 205/93
[2025-01-02 07:32] LABS: Glucose - Point of Care 175 mg/dl (70-99)
[2025-01-02] MEDS: NOVOLOG FLEXPEN-LOW RESISTANCE 1 UNITS SC ×3 (08:05→17:01)
[2025-01-02] MEDS: TYLENOL 650 MG PO (08:08)
[2025-01-02] MEDS: JANUVIA 25 MG PO (08:08)
[2025-01-02] MEDS: LOPRESSOR 100 MG PO (08:08)
[2025-01-02] MEDS: APRESOLINE 50 MG PO ×2 (08:08→15:53)
[2025-01-02] MEDS: HEPARIN 5000 UNITS SC (08:09)
[2025-01-02] MEDS: NAMENDA 10 MG PO (08:10)
[2025-01-02] MEDS: PRAVACHOL 20 MG PO (08:10)
[2025-01-02] MEDS: RISPERDAL 0.5 MG PO (08:10)
[2025-01-02 08:14] LABS: Hematocrit 29.1 % (37.0-47.0); Hemoglobin 9.6 g/dL (12.0-16.0); Mean Corp Hgb Conc. 33.0 g/dL (33.0-37.0); Mean Corpuscular Volume 80.8 fL (81.0-99.0); Platelet Count 192 10^3/uL (130-400); Red Cell Dist. Width 14.2 % (11.5-14.5)
[2025-01-02 08:37] LABS: ALT (SGPT) 13 U/L (0-35); AST (SGOT) 20 U/L (14-36); Albumin 3.4 g/dl (3.5-5.0); Alkaline Phosphatase 71 U/L (38-126); Blood Urea Nitrogen 22 mg/dl (7-17); Calcium 9.0 mg/dl (8.4-10.2); Carbon Dioxide 16 mmol/L (22-30); Chloride 115 mmol/L (98-107); Estimated Creatinine Clearance 29 ml/min; Glucose 174 mg/dl (70-99); Potassium 3.8 mmol/L (3.5-5.1); Sodium 141 mmol/L (135-145); Total Protein 6.2 g/dl (6.3-8.2); eGFR 43.27
[2025-01-02 09:29] VITALS: BP 150/62
--- NOTE | 2025-01-02 11:00 | CM ---
detail manager continues to follow with patient and caser up has a bed at [facility], Auth received from [facility]. Auth 01/01 to 01/07, NRD 01/08 update to [phone], Auth [id number]. Daughter
updated on PT recommendations.
[facility]
Report [phone]
[2025-01-02 11:34] VITALS: BP 152/61
[2025-01-02 11:36] LABS: Glucose - Point of Care 154 mg/dl (70-99)
--- NOTE | 2025-01-02 12:38 | W.PN.UPDATE ---
Update Note
Progress Note Update
I have independently evaluated the patient at the bedside. I reviewed the case with the resident and agree with documentation unless otherwise specified.
AFVSS. Renal function improving, creatinine down from 2.1-1.2 with good urine output. Patient denies any complaints though ROS limited by dementia.
Alert and oriented, NAD. Cardiopulmonary exam benign, abdomen benign. Skin warm and dry, palpable pulses, no edema. No focal deficits, no tremor. PERRL
#Dementia with behavioral change. Psychiatry following and has transitioned patient from Seroquel to Risperdal 0.5 mg BID. Remains on Namenda. Clinically stable. Psychiatry appreciated. Continue with delirium precaution.� Monitor QTc
#Prerenal RAVIN with solitary kidney. NAGMA from renal insufficiency and NSS. Creatinine trend 0.7�2.1�1.9�1.4�1.2. �Improving with IVF. �Renal ultrasound without signs of obstruction though did demonstrate solitary kidney.� Continue IV fluids while
here. Discontinue home losartan. Plan to repeat BMP in 5 to 7 days as OP
Diet -- Diabetic, 1600 Calories, encourage oral hydration
DVT prophylaxis -- SQ heparin
CODE STATUS -- Full
Disposition -- SNF today
--- NOTE | 2025-01-02 13:10 | PN.CDI ---
CDI
- -
CDI:
Physician Documentation Request
Admit Date: 01/01/25 15:53
Dear Doctor Marissa,
Patient presented to emergency department with worsening behavioral changes. History includes Dementia. Recently she has been having hallucinatory behavior and delusions.
Patient takes Namenda as outpatient. Currently on Risperdal as well.
Please clarify the most likely type of dementia
Alzheimer's.
Vascular
Lewy body
Senile
other
Use of terms such as suspected, likely, concern for, or probable (associated with a specific diagnosis that is being evaluated, monitored, or treated as if it exists) are acceptable and can be coded in the inpatient setting, when documented at the
time of discharge.
Thank you,
Sagrario Eisenberg RN, BSN
CDI Specialist
tiger text
Please use your independent medical judgment in providing your response.
--- NOTE | 2025-01-02 15:31 | W.PN.HOSP.TC ---
Addendum entered and electronically signed by Jesus Herrera DO 01/03/25 08:06:
CDI: Suspected Alzheimer's
Original Note:
Today's Communication/Plan
-
Patient had mild cough and chest x-ray was done and was normal, no sign of infection.
patient discharged today in stable condition with new Risperidone medication 0.5 mg BID
Assessment / Plan
Assessment / Plan
89-year-old female with past medical history of essential hypertension, pii-nfhtqaz-ybstkcsjm diabetes mellitus and recently diagnosed dementia a year ago, currently on Namenda 10 mg twice daily admitted with worsening behavioral changes and
delusions.
Started on Seroquel by her neurologist
Uncontrolled blood pressure
Uncontrolled blood sugar
Assessment/plan
#Worsening dementia with behavioral disturbances
Newly diagnosed dementia a year ago,mostly related to Alzheimer disease patient is currently on Namenda 10 mg twice daily
For her agitation, her neurologist advised Seroquel, sedating effect, puts patient at risk for falls
Psych consult appreciated-plan to do a trial of Risperdal 0.25 mg increased to 0.5mg daily
Monitor QTc , normal today
Monitor BMP
Frequent reorientation
per psych consult patient is still having delusional symptoms and Risperidone will be increased from 0.5 daily to 0.5 mg BID
#Ambulatory issues
Family concerned about balance issues
Discontinue Seroquel for now, trial of Risperdal
PT/OT
#Lgo-xzdpibo-ehzyrdezs diabetes mellitus
Family reported patient has been eating a lot of chocolates and candies
Start carb controlled diet
Sliding scale insulin
Continue Januvia decreased the dose today to 25 mg daily
Check HbA1c
Continue to monitor blood sugar levels
#RAVIN
Today cr 0.7--2.1-- 1.9-- 1.5--1.4--1.2
GFR 22.1 -- 24.93 --33.10--35.96 likely due to dehydration
continue IV Fluid
continue hold losartan
Renal ultrasound without signs of obstruction, showed solitary kidney
trend BMP, urine outputs check
avoid nephrotoxins
#Uncontrolled hypertension
Continue home medications, except losartan due to RAVIN
Add hydralazine as needed
If needed can add on oral medications
Continue to monitor blood pressure
#Hyperlipidemia-continue statins
DVT prophylaxis-enoxaparin
CODE STATUS-full code
Anticipated Discharge: Today
Subjective/Interval History
-
Date of Service: January 02, 2025
Patient looks tired today , still oriented and awake with low appetite. Had mild fever which improved with Tylenol. Had mild dry cough this morning. Wheezed yesterday night but improved this morning.
Objective Data
-
Labs:
Laboratory Results
01/02/25
07:54
WBC 7.7
Hgb 9.6 L
Hct 29.1 L
Plt Count 192
Sodium 141
Potassium 3.8
Chloride 115 H
Carbon Dioxide 16 L
BUN 22 H
Creatinine 1.2 H
Glucose 174 H
Calcium 9.0
Total Bilirubin 0.8
AST 20
ALT 13
Alkaline Phosphatase 71
Vital Signs:
Vital Signs
Temp Pulse Resp BP Pulse Ox
98.6 F 79 16 152/61 95
01/02/25 11:34 01/02/25 11:34 01/02/25 11:34 01/02/25 11:34 01/02/25 11:34
I&O
01/01/25 01/02/25 01/03/25
06:59 06:59 06:59
Intake Total 3200 / 3200 250 / 250 915 / 915
Balance 3200 / 3200 250 / 250 915 / 915
Review of Systems
-
Unable to obtain full review of systems at this time due to: Dementia
History Source: Patient
Respiratory: Reports Cough
Cardiac: Reports No Symptoms
Abdomen/GI: Reports No Symptoms
Genitourinary: Reports No Symptoms
Musculoskeletal: Reports Muscle Pain (left shoulder pain )
Neuro: Reports No Symptoms
Physical Exam
-
General: Well Developed, Well Nourished, No Apparent Distress and Comfortable
Respiratory: Clear to Auscultation
Cardiac: Regular Rhythm and S1/S2
GI: Soft, Nontender and Nondistended
Musculoskeletal: No Clubbing, No Cyanosis and No Edema
Skin: Warm and Dry
Neuro: Awake, Alert and Oriented
Psych: Calm
[2025-01-02 15:40] VITALS: BP 139/81
[2025-01-02 16:35] LABS: Glucose - Point of Care 180 mg/dl (70-99)
--- NOTE | 2025-01-02 19:52 | W.PN.UPDATE ---
Update Note
Progress Note Update
pt seen this afternoon, also met with daughter and her . plan to go to rehab discussed with pt; she insists it is not necessary, wants to go back to prior apt. I explained the need to get stronger so will need rehab--pt sweetly told me no,
God will provide. Daughter will be strongly encouraging as well. Continuing risperdal as outpatient
== END 2025-01-02 17:56 | DRG 57 ==
LOC: 4 WEST ACU 15:53
PROVIDERS: Nurse Practitioner; Specialist Research Data Abstracter/Coder; ADMITTING PHYSICIAN Internal Medicine; ATTENDING PHYSICIAN Internal Medicine; CONSULT PHYSICIAN Psychiatry & Neurology Psychiatry; EMERGENCY PHYSICIAN Emergency Medicine
DX: G30.9 Alzheimer's disease, unspecified (principal); F02.818 Dementia in other diseases classified elsewhere, unspecified severity, with other behavioral disturbance; E11.9 Type 2 diabetes mellitus without complications; Z79.84 Long term (current) use of oral hypoglycemic drugs; E78.00 Pure hypercholesterolemia, unspecified; I10 Essential (primary) hypertension; Z91.148 Patient's other noncompliance with medication regimen for other reason
CPT/HCPCS: 70450; 71045; 76770; 80048; 80053; 81003; 81015; 82607; 82746; 82962; 84443; 85025; 85027; 85730; 93005; 96360; 96361; 97116; 97163; 97166; 99285